=== PATIENT | male | born 1935 | race Caucasian/White ===

== ENCOUNTER 2017-05-04 10:44 | Inpatient (IN) | payer MEDICARE ==
[2017-05-04] MEDS ORDERED: methylPREDNISolone SODIUM SUC 125 MG/2 ML VIAL IV ONE (11:28)
[2017-05-04] MEDS ORDERED: ASPIRIN (CHEWABLE) 81 MG TAB PO ONE (11:28)
[2017-05-04] MEDS ORDERED: IPRATROPIUM/ALBUTEROL 3 ML VIAL NEB ONE (11:28)
[2017-05-04] MEDS ORDERED: NITROGLYCERIN/D5W IV 50,000 MCG in PREMIX BOTTLE 1 BOTTLE IVS SCH (11:30)
--- NOTE | 2017-05-04 11:36 | ED.PDOC ---
History of Present Illness - General Chief Complaint: Respiratory Problem Stated Complaint: low oxygen sats,elevated BP Time Seen by Provider: 05/04/17 11:26 Source: patient, family Exam Limitations: no limitations - History of Present Illness Initial Comments: Patient presents with dyspnea since yesterday. He says he got much worse 4 hours ago. He is on 2 L by [place] constantly at home for COPD and says that his saturations were 61 this morning. They normally are "in the 80s". He had a CABG and bovine aortic valve replacement 8 years ago but denies AMI. He does say that he has CHF. No chest pain today. No other complaints. Timing/Duration: 4-6 hours Severity: moderate Improving Factors: rest Worsening Factors: movement Associated Symptoms: denies symptoms Allergies/Adverse Reactions: Allergies Statins Allergy (Verified 05/04/17 11:10) Thimerosal [From Merthiolate Tincture] Allergy (Verified 05/04/17 11:10) Home Medications: Ambulatory Orders Acetaminophen W/ Codeine [Tylenol W/ CODEINE #3] 1 ea PO Q8H PRN 05/04/17 Albuterol Sulfate [Proair Hfa] 108 mcg IN PRN 05/04/17 Amlodipine Besylate 10 mg PO DAILY 05/04/17 Enzalutamide [Xtandi] 160 mg PO DAILY 05/04/17 Fluticasone Furoate-Vilanterol [Breo Ellipta] 1 inh IN DAILY 05/04/17 Fluticasone Propionate (Nasal) [Allergy Nasal [place] 24 Ho] 50 mcg NA PRN Lisinopril 5 mg PO DAILY 05/04/17 Ondansetron HCl [Zofran] 4 mg PO Q8H PRN 05/04/17 Tamsulosin [Flomax] 0.4 mg PO QD 05/04/17 Tiotropium Everett Monohydrate [Spiriva Handihaler] 2 puff IN DAILY 05/04/17 Review of Systems - Review of Systems Constitutional: States: no symptoms reported EENTM: States: no symptoms reported Respiratory: States: see HPI Cardiology: States: no symptoms reported Gastrointestinal/Abdominal: States: no symptoms reported Genitourinary: States: no symptoms reported Musculoskeletal: States: no symptoms reported Skin: States: no symptoms reported Neurological: States: no symptoms reported Endocrine: States: no symptoms reported Past Medical History (General) - Patient Medical History Hx Stroke: No Hx of COPD: Yes Hx Congestive Heart Failure: Yes Hx Hypertension: Yes Hx Diabetes: No Hx Cancer: Yes - 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 no wheezing. Cardiovascular/Chest: normal peripheral pulses, regular rate, rhythm, no edema Gastrointestinal/Abdominal: normal bowel sounds, non tender, soft Back Exam: no CVA tenderness Extremity: pedal edema - 3+ pitting edema Neurologic: no motor/sensory deficits, alert Skin Exam: normal color Lymphatic: no adenopathy Progress - Progress Progress: 05/04/17 14:10 Laboratory Tests 05/04/17 05/04/17 05/04/17 11:40 11:40 11:40 WBC 7.8 RBC 2.93 L Hgb 9.1 L Hct 27.3 L MCV 93.0 MCH 31.0 MCHC 33.2 RDW 12.9 Plt Count 259 MPV 7.7 Absolute Neuts (auto) 6.60 Absolute Lymphs (auto) 0.60 L Absolute Monos (auto) 0.50 Absolute Eos (auto) 0.00 Absolute Basos (auto) 0.00 Neutrophils % 85.5 H Lymphocytes % 7.5 L Monocytes % 5.9 Eosinophils % 0.6 L Basophils % 0.5 PT 11.9 INR 1.050 PTT (SP) 27.9 pCO2 pO2 HCO3 ABG pH ABG O2 Saturation ABG Base Excess ABG Deoxyhemoglobin Oxyhemoglobin % Carboxyhemoglobin % Methemoglobin % Sat Calc Total Hemoglobin Sodium 142 Potassium 5.3 H Chloride 107 Carbon Dioxide 25 Anion Gap 15.3 BUN 69 H Creatinine 3.86 H BUN/Creatinine Ratio 17.9 Random Glucose 137 H Serum Osmolality 305.4 H Calcium 9.4 Total Bilirubin 0.7 AST 22 ALT 17 Alkaline Phosphatase 85 Creatine Kinase CK-MB (CK-2) CK-MB (CK-2) % Troponin I B-Natriuretic Peptide Serum Total Protein 7.1 Albumin 3.5 Globulin 3.6 H Albumin/Globulin Ratio 1.0 L 05/04/17 05/04/17 05/04/17 11:40 11:40 12:10 WBC RBC Hgb Hct MCV MCH MCHC RDW Plt Count MPV Absolute Neuts (auto) Absolute Lymphs (auto) Absolute Monos (auto) Absolute Eos (auto) Absolute Basos (auto) Neutrophils % Lymphocytes % Monocytes % Eosinophils % Basophils % PT INR PTT (SP) Cancelled pCO2 38 pO2 90 HCO3 23.0 ABG pH 7.400 ABG O2 Saturation 99.6 H ABG Base Excess -1.0 ABG Deoxyhemoglobin 0.4 Oxyhemoglobin % 96.5 Carboxyhemoglobin % 0.9 Methemoglobin % Sat 2.2 H Calc Total Hemoglobin 8.2 L Sodium Potassium Chloride Carbon Dioxide Anion Gap BUN Creatinine BUN/Creatinine Ratio Random Glucose Serum Osmolality Calcium Total Bilirubin AST ALT Alkaline Phosphatase Creatine Kinase 48 CK-MB (CK-2) 1.5 CK-MB (CK-2) % Not Reportable Troponin I 0.06 H B-Natriuretic Peptide 1960.0 H* Serum Total Protein Albumin Globulin Albumin/Globulin Ratio BNP 1960. Patient given nitrobid ointment and lasix 40 mg IV x one. He was requiring 4-8 liters by NC tks > 90%. Troponin 0.06 which is probably due to enlargement of the heart. Admitted for CHF exacerbation. Departure - Departure Clinical Impression: Congestive heart failure Disposition: Admit Patient Condition: Good Departure Forms: ED Discharge - Pt. Copy, Patient Portal Self Enrollment Diet: other - as per hospitalist Activity: increase activity as tolerated Referrals: COLLIN MAC DO [Primary Care Provider] - 1-2 Weeks Home Medications: Ambulatory Orders Acetaminophen W/ Codeine [Tylenol W/ CODEINE #3] 1 ea PO Q8H PRN 05/04/17 Albuterol Sulfate [Proair Hfa] 108 mcg IN PRN 05/04/17 Amlodipine Besylate 10 mg PO DAILY 05/04/17 Enzalutamide [Xtandi] 160 mg PO DAILY 05/04/17 Fluticasone Furoate-Vilanterol [Breo Ellipta] 1 inh IN DAILY 05/04/17 Fluticasone Propionate (Nasal) [Allergy Nasal [place] 24 Ho] 50 mcg NA PRN Lisinopril 5 mg PO DAILY 05/04/17 Ondansetron HCl [Zofran] 4 mg PO Q8H PRN 05/04/17 Tamsulosin [Flomax] 0.4 mg PO QD 05/04/17 Tiotropium Everett Monohydrate [Spiriva Handihaler] 2 puff IN DAILY 05/04/17
[2017-05-04] MEDS ORDERED: FUROSEMIDE INJ 40 MG/4 ML VIAL IV ONE (12:24)
[2017-05-04] MEDS ORDERED: NITROGLYCERIN 2% 1 GM UD TOP ONE (12:25)
--- NOTE | 2017-05-04 12:35 | RAD ---
EXAM DESCRIPTION: Chest,1 View CLINICAL HISTORY: 82 years Male, dyspnea COMPARISON: None. IMPRESSION: The heart is enlarged with central pulmonary vascular congestion. Moderate atherosclerosis in the thoracic aorta. Median sternotomy wires and changes of prior cardiac surgery. Diffusely increased interstitial and airspace opacities throughout both lungs which are most pronounced in the lung bases. Moderate bilateral pleural effusions. The findings are most consistent with CHF with severe pulmonary edema. Multifocal pneumonia may have a similar appearance. No pneumothorax. No acute osseous abnormality. Electronically signed by: Oscar Chacon MD 05/04/2017 12:34 PM COMMERCIAL LENDING VICE PRESIDENT
--- NOTE | 2017-05-04 14:50 | HP ---
SUPERVISING PHYSICIAN: Tapan Cheney M.D. CHIEF COMPLAINT: Dyspnea and weakness. HISTORY OF PRESENT ILLNESS: This is an 82 year-old male patient who has recently moved in with his daughter who lives here in [place]. He originally is from [place]. He has a significant history of prostate cancer that he just recently went to see Dr. Young in [place]. He was actually in [facility] on 04/12/17 due to some urinary retention as well as followup on his prostate cancer. He was discharged home. He had been treated in the past by Dr. Arnold, urologist, until recently when he started going to Dr. Young. His primary care physician is Dr. Chadwick in [place]. Since he was discharged from [facility], he has attempted to do some rehab at [facility], but according to the patient there was some conflicts that were unresolvable, so he came to live with his daughter. In the last 2 days, he has become severely dyspneic. He is oxygen dependent at all times. At one point, he thought his oxygen was not working, although they checked it this morning and the medical service said that his oxygen machine checked out to be okay. He said his oxygen saturations dropped into the 60s and it is normally in the 80s. He called Dr. Chadwcik and Dr. Chadwick told him to go to the nearest E. . In the Emergency Room, his WBCs were 7.8 with hemoglobin 9.1 and hematocrit 27.3. ABG was basically within normal limits. Sodium was 142 with potassium 5.3, chloride 107, carbon dioxide 25, BUN 69, creatinine 3.86. He did say while he was in the hospital in [place] his creatinine went up as high as 7.7 and his baseline is around 4.7. Glucose was 137 and BNP was 1960. Chest x-ray showed and enlarged heart with central pulmonary vascular congestion with moderate bilateral pleural effusions that are consistent with congestive heart failure and severe pulmonary edema. Multifocal pneumonia may have a similar appearance which is also a consideration. In the Emergency Room, he was given some Lasix, some Solu-Medrol as well as multiple breathing treatments. Nitro paste was also applied. He did have a small amount of output. I was called for admission for acute exacerbation of congestive heart failure. PAST MEDICAL HISTORY: 1. Chronic obstructive pulmonary disease chronically on oxygen. 2. Congestive heart failure of unknown etiology and no current echocardiogram for review. Dr. Taylor is his financial manager. He has had a CABG in the past with a valve replacement. 3. Chronic renal failure with a baseline creatinine of 4.7. 4. Hypertension. 5. Hyperlipidemia. 6. Prostat cancer. PAST SURGICAL HISTORY: 1. Triple bypass with bovine valve replacement approximately 8 years ago. 2. Bilateral cataract surgery. 3. Bladder repair many years ago. 4. Tonsillectomy. OUTPATIENT MEDICATIONS: Per the EMR and awaiting verification. ALLERGIES: STATINS. SOCIAL HISTORY: He has a past history of smoking, quit about 8 years ago. He lives with his daughter here in [facility]. He drinks alcoholic beverages on a social basis. Denies any illicit drug use. REVIEW OF SYSTEMS: GENERAL: Positive for fatigue. Negative for fever or weight changes. HEENT: Negative for ear pain, vision changes, sore throat or sinus symptoms. RESPIRATORY: Positive for shortness of breath and a mild cough. Negative for wheezing. CARDIOVASCULAR: Negative for chest pain, palpitations or tachycardia. GASTROINTESTINAL: Positive for some mild nausea but negative for vomiting, constipation or diarrhea. GENITOURINARY: Negative for hematuria or dysuria. He does say he has problems urinating frequently most likely due to prostate problems. EXTREMITIES: Positive for edema to the bilateral lower extremities. NEUROLOGIC: Negative for dizziness, headaches or seizures. PHYSICAL EXAMINATION: VITAL SIGNS: He is afebrile, heart rate 88, blood pressure 136/68, respiratory rate has been as high as 25, it is now 22. O2 saturation was as low as 84%, it is now 88% on 2 liters nasal cannula. GENERAL: This is an 82 year-old male patient who is lying in his hospital bed. He is in no acute distress. HEENT: Normocephalic and atraumatic. Pupils are equal and reactive. Oropharynx is clear. NECK: Supple without mass. There is no discernible jugular venous distention. RESPIRATORY: Scattered crackles throughout with diminished breath sounds. There is no wheezing noted. CHEST: There is equal rise and fall of the chest with inspiration and expiration. He is slightly tachypneic. CARDIOVASCULAR: Regular rate and rhythm. GASTROINTESTINAL: Abdomen is soft, nondistended, non-tender. Bowel sounds are positive. EXTREMITIES: +2 pitting edema to bilateral lower extremities. There is no cyanosis. NEUROLOGIC: He is awake, alert and oriented times three. Cranial nerves II- XII are intact. LABORATORY: Labs and films are as per the History of Present Illness. ASSESSMENT: 1. Acute exacerbation of congestive heart failure of unknown etiology and no echocardiogram available for review. He is O2 dependent at home with severe dyspnea and an elevated BNP on admission of approximately 1999. 2. Chronic obstructive pulmonary disease. 3. Prostate cancer. 4. Coronary artery disease with a history of coronary artery bypass graft and valve replacement. 5. Hyperlipidemia. 6. Hypertension. 7. Hyperkalemia. 8. Chronic renal failure with a baseline creatinine of 4.7. PLAN: We will admit the patient to the hospital. I have initiated the CHF guidelines. His home medications have been started. It is to be noted that he is on an Willem inhibitor but he does not have a beta katt. He is on a calcium channel katt. I have held his p.o. Lasix as he is on IV Lasix. Will repeat his lab and chest x-ray in the morning. He would like to have home health on discharge with physical therapy. He will inform us of what service he would like to use. It would be helpful to get an echocardiogram from Dr. Taylor's office if possible. Otherwise we will continue to monitor the patient closely and follow as needed. Dr. Cheney is the collaborating physician available for consultation. #[id number] [facility] HOSPITALJessie
[2017-05-04] MEDS ORDERED: NITROGLYCERIN 0.4 MG 25 EA TAB SL PRN (17:05)
[2017-05-04] MEDS ORDERED: ALBUTEROL SULFATE 2.5 MG/3 ML VIAL NEB PRN (17:05)
[2017-05-04] MEDS ORDERED: ACETAMINOPHEN 325 MG TAB PO PRN (17:05)
[2017-05-04] MEDS ORDERED: TAMSULOSIN 0.4 MG CAP PO SCH (17:30)
[2017-05-04] MEDS ORDERED: IV SET AND CAP CHANGE INJ INJ SCH (17:30)
[2017-05-04] MEDS: ALBUTEROL SULFATE 2.5 MG/3 ML VIAL NEB SCH (20:05)
[2017-05-04] MEDS: SODIUM CHLORIDE 0.9% (FLUSH) 10 ML SYG IV SCH (20:31)
[2017-05-05] MEDS ORDERED: diphenhydrAMINE HCL 50 MG/ML VIAL IV ONE (06:49)
[2017-05-05] MEDS ORDERED: FUROSEMIDE INJ 40 MG/4 ML VIAL IV ONE (06:49)
[2017-05-05] MEDS ORDERED: ACETAMINOPHEN 325 MG TAB PO ONE (06:49)
[2017-05-05] MEDS ORDERED: SODIUM CHLORIDE 0.9% 500ML 500 ML IVS SCH (07:00)
--- NOTE | 2017-05-05 07:50 | RAD ---
Clinical History : CHF , MAIN Exam : Portable AP view of the chest 05/05/2017 7:00 AM COST ESTIMATING ENGINEER Comparisons : Portable AP view of the chest May 04, 2017 Findings : The patient is in lordotic position which accentuates the lung apices and partially obscures evaluation of the lung bases. There is moderate diffuse peribronchial thickening throughout the lungs bilaterally. There is a moderate right and small left pleural effusion with bilateral lower lobe airspace disease. The heart is enlarged. The mediastinal contours are normal in appearance. The patient is status post sternotomy and CABG. The thoracic spine is age appropriate. The shoulders are unremarkable. Limited evaluation of the upper abdomen demonstrates no gross abnormalities. Impression: Pulmonary edema with increasing bilateral pleural effusions and lower lobe airspace disease. Electronically signed by: Clau Thornton MD 05/05/2017 7:49 AM COST ESTIMATING ENGINEER
[2017-05-05] MEDS ORDERED: ACETAMINOPHEN W/COD #3 TAB 1 EA TAB PO PRN (07:51)
[2017-05-05] MEDS: ALBUTEROL SULFATE 2.5 MG/3 ML VIAL NEB SCH ×5 (08:24→19:59)
[2017-05-05] MEDS: NON-FORMULARY MEDICATION 1 EA MIS (Fluticasone Furoate-Vilanterol [Breo Ellipta 100-25 Mcg IN SCH ×2 (08:27→11:45)
[2017-05-05] MEDS: NITROGLYCERIN 2% 1 GM UD TOP SCH ×2 (08:54→15:35)
[2017-05-05] MEDS: LISINOPRIL 5 MG TAB PO SCH (08:55)
[2017-05-05] MEDS: amLODIPine BESYLATE 5 MG TAB PO SCH (08:55)
[2017-05-05] MEDS: TAMSULOSIN 0.4 MG CAP PO SCH (08:56)
[2017-05-05] MEDS: FUROSEMIDE INJ 40 MG/4 ML VIAL IV SCH ×2 (08:56→15:47)
[2017-05-05] MEDS: SODIUM CHLORIDE 0.9% (FLUSH) 10 ML SYG IV SCH ×2 (08:57→21:14)
[2017-05-05] MEDS: TIOTROPIUM INH SCH (11:45)
[2017-05-05] MEDS: ENZALUTAMIDE 160 MG PO SCH (11:54)
[2017-05-05] MEDS: SODIUM CHLORIDE 0.9% (FLUSH) 10 ML SYG IV PRN ×2 (15:35→21:28)
[2017-05-05] MEDS ORDERED: SOD POLYSTYRENE SULFONATE 15 GM/60 ML BTTL PO ONE (19:30)
[2017-05-05] MEDS: POLYETHYLENE GLYCOL 3350 17 GM PCKT PO SCH (20:08)
--- NOTE | 2017-05-05 20:15 | PN ---
DATE: 05/05/17 SUBJECTIVE: The patient is sitting up eating his supper. He is alert and communicative. He is somewhat short of breath. Significant pulmonary edema was evident on chest x-ray. He is now in the process of receiving 2 units of packed red blood cells with some Lasix IV between the units of blood being given. He has had a previous history of being scheduled for this Sunday by Dr. Young, oncology/ethnoarchaeologist for iron infusion as well as Lupron medication dosing. This will no doubt need to be rescheduled. He is also scheduled to see his urologist later next week and that also needs to be clarified so that he will not have to miss that appointment. The patient has had significant problems with prostate cancer and the possibility of it having spread to his bones has been discussed with him. He is living with his daughter in [place] but wants to get feeling strong enough so that he will be able to return home to [place], [place] for continued care. In the meantime, he may benefit from some home health services while at his daughter's home after discharge. OBJECTIVE: Afebrile, pulse 100, blood pressure 114/53, pulse oximetry is very low at 82 and 83 on 2 liters even though his blood gas saturation was quite normal because possibly of reduced hemoglobin and a degree of cyanosis possibly relating to his previous heart disease. He has had an aortic valve replaced and he has a very large heart with elevated BNP and will require ongoing specialized followup with Dr. Taylor, forklift wheel loader. The patient is awake and alert. LUNGS: Have some rhonchi with some initial rales clearing as he continues with deep inspirations. HEART: Tones are somewhat distant and do have evidence of a systolic murmur and possibly a prosthetic valvular closing sound. ABDOMEN: Soft though slightly prominent. EXTREMITIES: Fairly well formed with some edema of the lower extremities. Coloration is somewhat ashen in color and the nurses have noted the diminished pulse oximetry on his finger, even though blood gas shows the saturation to be normal to high at a given oxygen administration. He uses oxygen at home. LABORATORY: Hemoglobin has dropped from 9.1 to 8 this morning and an order was given to instill 2 units of packed red blood cells slowly with Lasix in between to help prevent any evidence of significant overloading. No cultures obtained. RADIOLOGY: Chest x-ray is obtained this morning and shows pulmonary edema with increasing pleural effusions and lower lobe airspace process. His weight today is 2 pounds approximately solutions sales consultant than yesterday paralleling some of the diuresis that he has had. ASSESSMENT: 1. Chronic congestive heart failure with an acute exacerbation of unknown etiology with no echocardiogram available for review being followed by Dr. Taylor, forklift wheel loader in [place]. Elevated BNP is noted with history of congenital or acquired aortic heart valve disease requiring surgery recently. 2. Chronic obstructive pulmonary disease with mild exacerbation. 3. Chronic prostate cancer being followed by Urology in [place] with possible metastatic spread and some obstructive components having been on chemotherapy hormone therapy for a few years, now having been changed to Lupron recently. 4. History of coronary artery disease with a history of coronary artery bypass grafting and aortic valve replacement in the past. 5. Hyperlipidemia. 6. Hypertension. 7. Hyperkalemia. 8. Chronic renal failure with a baseline creatinine of 4.7. 9. Chronic anemia with an acute exacerbation receiving 2 units of packed red blood cells today and receiving iron infusions, etc., from H[facility]ology Clinic in [place] when scheduled. PLAN: Complete the infusion and continue gentle diuresis with p.o. fluid restrictions. Slowly increase activity level. Reevaluate closely. Try to get in touch with Dr. Taylor, Dr. Young and the urologist on Sunday to allow them to be informed of the patient's current condition and to provide input for his ongoing care. #[id number] [facility]
[2017-05-06] MEDS: NON-FORMULARY MEDICATION 1 EA MIS (Fluticasone Furoate-Vilanterol [Breo Ellipta 100-25 Mcg IN SCH (08:14)
[2017-05-06] MEDS: ALBUTEROL SULFATE 2.5 MG/3 ML VIAL NEB SCH ×4 (08:15→20:40)
[2017-05-06] MEDS: TIOTROPIUM INH SCH (08:15)
[2017-05-06] MEDS ORDERED: ONDANSETRON 4 MG TAB ONE (08:57)
[2017-05-06] MEDS: SODIUM CHLORIDE 0.9% (FLUSH) 10 ML SYG IV SCH ×2 (09:19→21:13)
[2017-05-06] MEDS: FUROSEMIDE INJ 40 MG/4 ML VIAL IV SCH ×2 (09:19→20:16)
[2017-05-06] MEDS: ONDANSETRON 4 MG TAB PO PRN ×2 (09:21→17:40)
[2017-05-06] MEDS ORDERED: MAGNESIUM HYDROXIDE 30 ML UD PO ONE (11:34)
[2017-05-06] MEDS: ENZALUTAMIDE 160 MG PO SCH (11:56)
[2017-05-06] MEDS: amLODIPine BESYLATE 5 MG TAB PO SCH (11:57)
[2017-05-06] MEDS: LISINOPRIL 5 MG TAB PO SCH (11:57)
[2017-05-06] MEDS: POLYETHYLENE GLYCOL 3350 17 GM PCKT PO SCH (11:58)
[2017-05-06] MEDS: TAMSULOSIN 0.4 MG CAP PO SCH (11:58)
--- NOTE | 2017-05-06 14:10 | PN ---
DATE: 05/06/17 SUBJECTIVE: The patient is sitting up in his bed. He is able to talk but is still having some difficulty breathing. His 2 sons are present and the entire condition is discussed at length as we make plans for future care. He tolerated the RBC transfusion yesterday quite well with an improved hemoglobin today and improved coloration evident. Still somewhat nauseated today. The patient does have several underlying factors of significance requiring specialized ongoing care and assistance. OBJECTIVE: Afebrile, pulse 89, blood pressure 155/70, pulse oximetry 90% on nasal cannula. Weight is slightly elevated but with increased fluids after the blood products were given yesterday and he seems to be constipated without significant bowel movements now for several days or weeks. The patient states that he feels "full" in his abdomen which is somewhat distended. No point tenderness noted or organomegaly evident. HEART: Tones do reveal somewhat distant heart tones. LUNGS: Have some diminished breath sounds with some rhonchi bilaterally. Improvement in some of the rales noted laterally. ABDOMEN : Distended with no rebound tenderness. Bowel tones are somewhat diminished. The patient is going to try to increase activity level beginning today with close observation and prevention of falling. LABORATORY STUDIES: Hemoglobin is up from 8 to 10.6, white count 9,600 with a normocytic/normochromic presentation. Chemistries show potassium is down from 5.6 to 4.9, BUN is 71 down from 73 and creatinine is 3.97 down from 4.15. Glucose 120. Recently with elevated beta natriuretic peptide of 1,960 to be rechecked in the morning. RADIOLOGY: Chest x-ray is to be checked again tomorrow with it showing yesterday some pulmonary edema with pleural effusions and followup necessary. Continue diuresis. ASSESSMENT: 1. Chronic congestive heart failure with an acute exacerbation of unknown etiology with no specific echocardiogram results available at this time but being followed by Dr. Taylor, city plant supervisor in [place]. He presents with elevated BNP and a history of aortic valve disease with significant muscle hypertrophy. 2. Chronic obstructive pulmonary disease with exacerbation. 3. Chronic prostate cancer being followed by Urology in [place] with metastatic spread and obstructive components with noted bilateral hydroureters and hydronephrosis possibly suggesting a bladder outlet obstruction in the region of the prostate currently on chemotherapy with new chemotherapy to be initiated when possible. 4. History of coronary artery disease with history of coronary artery bypass grafting as well as aortic valve replacement in the past. 5. Hyperlipidemia. 6. Hypertension. 7. Hyperkalemia showing improvement after Kayexalate. 8. Chronic renal failure with a baseline creatinine of 4.[address] Ann, faculty research assistant. 9. Chronic anemia with acute exacerbation receiving 2 units of packed red blood cells and receiving iron infusions, etc., at the hematology clinic in [place] when scheduled. Presents with a normocytic/normochromic pattern, possibly if chronic disease. PLAN: The patient's activity level will be increased now that he has received his blood transfusions. Physical Therapy will evaluate him for rehab potential. Possibility of Swing Bed to assist with strengthening and reduction of fall risk. The patient currently is being followed by Dr. Chadwick out of [place], [place] and sees Dr. Young, oncologist in [place], and Dr. Ann in [place] and Dr. Taylor, city plant supervisor. He is to see a new urologist soon in [place]. It is a significant hardship on the family to have him go back and forth to [place] and they are requesting and we are hoping to be able to expedite a program of close followup in [place] to allow with his ongoing care, especially since the patient is significantly disabled and requires specialized care. Suggest followup with primary care physician, Dr. Hanson or Dr. Cheney in the near future to see if they will be able to help with orchestrating the other specialists in the patient's ongoing care. Will try to make a phone call on Sunday, tomorrow, to see if Dr. Jose M Torres, urologist , can see the patient at his next visit on 05/09/17 in the morning, phone number [phone]. To call Dr. Carver at [phone] to see if the patient would be able to get an appointment to see her instead of Dr. Young, her colleague at her next visit in the afternoon of 05/14/17. The possibility of transferring the new chemotherapy pills with Dr. Carver from Dr. Young' s office in [place] would be very helpful so that it can be commenced to be treated along with the Lupron shots. Dr. Ann could see the patient because of renal failure next Sunday in the afternoon, 05/09/17, phone number [phone] to see if an appointment can be made. The patient also sees Dr. Taylor, city plant supervisor, [place] at [phone] and recommendations can be made regarding his ongoing treatment of significant congestive heart failure , but also to see if he with either need to come to see Dr. Taylor in [place] or would he be able to have his care continued with Dr. Avina or Dr. Lino who actually come to the [facility]. May also call on Sunday to [facility] at [phone] to see the patient and the family to arrange for home health assistance when he returns home where he lives with his daughter. Physical Therapy is to see the patient in the morning to see if he has rehab potential, would he benefit by Swing Bed rehabilitation or continued outpatient rehab. The patient is at fall risk. Reevaluate in the morning with lab and x-ray as well as an ultrasound to evaluate for the presence of significant bilateral hydroureter and hydronephrosis which was noted in March in [place] over a month ago to see if there is any significant change. This study to be performed in the morning. Close followup is necessary. #[id number] [facility]
[2017-05-06] MEDS ORDERED: BISACODYL SUPPOSITORY 10 MG PR PRN (15:00)
[2017-05-06] MEDS: NITROGLYCERIN 2% 1 GM UD TOP SCH (20:23)
--- NOTE | 2017-05-07 07:48 | RAD ---
EXAM DESCRIPTION: Chest,1 View CLINICAL HISTORY: chf COMPARISON: May 05, 2017 IMPRESSION: Single AP portable upright view of the chest shows enlargement of the cardiac silhouette. Pulmonary vascularity is mildly prominent, but slightly improved from previous exam system with mild congestive heart failure. Small bilateral pleural effusions are seen slightly improved on the right probable bibasilar atelectasis or infiltrates again seen. Postsurgical changes from CABG are again noted. Electronically signed by: Michael Dalton MD 05/07/2017 7:48 AM CDT
[2017-05-07] MEDS: TIOTROPIUM INH SCH (08:54)
[2017-05-07] MEDS: NON-FORMULARY MEDICATION 1 EA MIS (Fluticasone Furoate-Vilanterol [Breo Ellipta 100-25 Mcg IN SCH (08:54)
[2017-05-07] MEDS: ALBUTEROL SULFATE 2.5 MG/3 ML VIAL NEB SCH ×3 (08:54→19:53)
[2017-05-07] MEDS: LISINOPRIL 5 MG TAB PO SCH (09:27)
[2017-05-07] MEDS: TAMSULOSIN 0.4 MG CAP PO SCH (09:27)
[2017-05-07] MEDS: amLODIPine BESYLATE 5 MG TAB PO SCH (09:27)
[2017-05-07] MEDS: FUROSEMIDE INJ 40 MG/4 ML VIAL IV SCH (09:27)
[2017-05-07] MEDS: POLYETHYLENE GLYCOL 3350 17 GM PCKT PO SCH (09:27)
[2017-05-07] MEDS: SODIUM CHLORIDE 0.9% (FLUSH) 10 ML SYG IV SCH (09:28)
[2017-05-07] MEDS: ENZALUTAMIDE 160 MG PO SCH (09:29)
--- NOTE | 2017-05-07 12:24 | US ---
EXAM DESCRIPTION: Renal: Ultrasound. CLINICAL HISTORY: obstructive uropathy, Check ureters and bladder. COMPARISON: None. TECHNIQUE: Transcutaneous scanning: Two-dimensional and Doppler modes. FINDINGS: Right kidney measures 11.1 x 5.9 x 5.3 cm; mid-renal cortical thickness 1.3 mm. . Echogenicity increased and heterogeneous compared to the liver. Mild to moderate hydronephrosis No calcifications. Lobulated contour of the kidney with no perinephric fluid. Normal vascularity. Proximal ureter visualized and mildly dilated. Left kidney measures 11.2 x 5.4 x 5.9 cm; mid-renal cortical thickness 11 mm. Increased heterogeneous echogenicity compared to the liver. [id number] hydronephrosis. No calcifications. 2.4 x 1.9 x 1.2 cm anechoic cyst, mid aspect. Lobulated contour of the kidney with no perinephric fluid. Normal vascularity.. Proximal ureter visualized and mildly dilated. Urinary bladder was visualized but decompressed with fluid inflated balloon on the catheter. Hypoechoic lobulated prostate gland impressing on the bladder base measuring 7.2 x 4.5 x 4.7 cm. Ureteral jet in the bladder not seen. Abdominal aorta diameter not measured. IMPRESSION: 1. Right renal moderate hydronephrosis with cortical thinning and increased echogenicity relative to the liver which could indicate medical renal disease but cannot exclude obstructive uropathy. Moderate hydronephrosis and mild to moderate dilation of the proximal right ureter. 2. Left renal moderate hydronephrosis with cortical thinning and increased echogenicity, which could indicate medical renal disease, but cannot exclude obstructive uropathy. Moderate hydronephrosis and mild to moderate dilation of the proximal left ureter. 2.4 cm anechoic cyst. 3. Enlarged prostate gland impressing on the base of the urinary bladder may be causing bladder outlet obstruction. Electronically signed by: Raji Moya MD 05/07/2017 12:23 PM CDT
[2017-05-07 16:50] VITALS: BP 137/66; TEMP 96.9
[2017-05-07 19:56] VITALS: O2SAT 95
--- NOTE | 2017-05-16 20:53 | DS ---
SUPERVISING PHYSICIAN: Tapan Cheney M.D. DISCHARGE DIAGNOSIS: 1. Chronic congestive heart failure with an acute exacerbation of unknown etiology with no specific echocardiogram results available for review requiring close followup by Dr. Taylor, health specialist in [place]. He initially presented with a BNP that was elevated as well as she has a history of aortic valve disease with significant muscle hypertrophy. 2. Chronic obstructive pulmonary disease with exacerbation. 3. Chronic prostate cancer being followed by Urology in [place] with metastatic spread and obstructive components with noted bilateral hydroureters and hydronephrosis possibly suggesting a bladder outlet obstruction in the region of the prostate and currently on chemotherapy with new chemotherapy to be initiated as soon as possible. 4. History of coronary artery disease with history of coronary artery bypass grafting as well as aortic valve replacement in the past. 5. Hyperlipidemia. 6. Hypertension. 7. Hyperkalemia, improved with Kayexalate. 8. Chronic renal failure with a baseline creatinine of 4.[address] 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 9. Chronic anemia with acute exacerbation having received 2 units of packed red blood cells and iron infusions at the hematology clinic in [place]. He presented with a normocytic/normochromic pattern, possibly of chronic disease. REASON FOR HOSPITALIZATION: Mr. Mcqueen is an 82 year-old male patient who had been recently moved in with his daughter who lives in [place]. He originally is from [place], [place]. He has a significant history of prostate cancer that he just recently went to see Dr. Young in [place]. He was actually in [facility] on 04/12/17 due to some urinary retention as well as followup on his prostate cancer. He was discharged home. He had been treated in the past by Dr. Arnold, urologist, until recently when he started going to Dr. Young. His primary care physician is Dr. Chadwcik in [place]. Since he was discharged from [facility], he had attempted to do some rehab at [facility], but according to the patient there was some conflicts that were unresolvable, so he came to live with his daughter. In the last 2 days, he has become severely dyspneic. He is oxygen dependent at all times. At one point, he thought his oxygen was not working, although they checked it this morning and the medical service said that his oxygen machine checked out to be okay. He said his oxygen saturations dropped into the 60s which it is normally in the 80s. He called Dr. Chadwick and Dr. Chadwick told him to go to the nearest E. R. In the Emergency Room, his WBCs were found to be 7.8 with hemoglobin 9.1 and hematocrit 27.3. ABG was basically within normal limits. He did say while he was in the hospital in [place] his creatinine went up as high as 7.7 and his baseline is around 4.7. On initial examination, laboratory studies showed potassium was 5.3 with creatinine 3.86. Chest x-ray showed an enlarged heart with central pulmonary vascular congestion with moderate bilateral pleural effusions that are consistent with congestive heart failure and severe pulmonary edema. Multifocal pneumonia may have a similar appearance which is also a consideration. In the Emergency Room, he was given some Lasix, Solu- Medrol as well as multiple breathing treatments. Nitro paste was applied and he did have a small amount of output. He was then admitted to the Medical/ Surgical floor for acute exacerbation of congestive heart failure. LABORATORY STUDIES: CBC on admission showed white count 7,800, at discharge it was 7,600. Hemoglobin at discharge was 11, hematocrit 32.8, platelet count 227, 000. Initially did show a left shift. This resolved prior to discharge. Coagulation studies showed that he had a normal PT and PTT. Blood gas analysis showed to be within normal limits with him satting 99.6%. Chemistries showed initially potassium 5.3 with BUN 69, creatinine 3.86, osmolality 305, magnesium 1.6, calcium 9.4. Liver functions are within normal limits. Elevated troponin of 0.06 but BNP of 1960. After Kayexalate and treatment and prior to discharge, his electrolytes had normalized. Potassium was 4.7, BUN was 65 and creatinine 4.02 with glucose 109, calcium 9.6, magnesium 1.6. Liver functions remain within normal limits. He had 1 stool occult blood that was negative. MICROBIOLOGY: No specimens are submitted. RADIOLOGY: Initially in the Emergency Department he had a chest x-ray and per radiology interpretation there was note of enlarged central pulmonary vascular congestion with diffuse increased interstitial and airspace opacity throughout both lungs with most pronounced in the lung bases. There is note of moderate bilateral pleural effusions which findings were most consistent with congestive heart failure with severe pulmonary edema with multifocal pneumonia having the same appearance. There was no pneumothorax. Repeat chest x-rays were completed and the last chest x-ray on 05/07/17 after initiation of treatment prior to discharge showed per radiology interpretation pulmonary vascular congestion mildly prominent but slightly improved from previous exams with mild congestive heart failure with some small bilateral pleural effusions slightly improved on the right, probable basilar atelectasis or infiltrates again seen. He had a renal ultrasound prior to discharge and per radiology interpretation there was note of right renal moderate hydronephrosis with cortical thinning and increase in echogenic relative to the liver which could indicate medical disease, but could not exclude obstructive uropathy and moderate hydronephrosis and mild to moderate dilation of the proximal ureter. The left was noted with moderate hydronephrosis with cortical thinning and increased echogenicity again as noted above. Concerns for obstructive uropathy. There was note also of enlarge prostate gland impressing on the base of the urinary bladder which may be causing bladder outlet obstruction. EKG in the Emergency Department prior to admission showed normal sinus rhythm with no concerning changes. HOSPITAL COURSE: Mr. Mcqueen was admitted as noted on 05/04/17 above, initiated on treatment with Lasix and Kayexalate. He did show good clinical response to treatment as well as he was given a single dose of Solu-Medrol. No antibiotics were started. There was no significant signs of any major infection or pneumonia. The patient was feeling much better and clinically improved on the morning of discharge well enough to be followed in the outpatient setting with his primary care physician as well as his multiple specialist doctors. He did have the indwelling Diaz catheter replaced on admission which did remain in place prior to discharge with no signs of infection. PLAN: Mr. Mcqueen was discharged on 05/07/17 with instructions to have close clinical followup with Dr. Cheney which was arranged as a new appointment on Sunday of discharge. He was to coordinate care with specialists through Dr. Cheney's office. He was told to restrict his fluids to less than 1600 mL in a 24 hour period and to return to the hospital should he have any concerning symptoms. His diet was to be usual diet. Activity is increase activity as tolerated. Discharge medications included: 1. MiraLAX 17 grams daily. All other medications as prior to admission were continued as previous to discharge and admission. Condition on discharge was stable and improved. #[id number] [facility]
== END 2017-05-07 17:15 | disposition home or self-care (01) | DRG 292 ==
LOC: ER 10:44 → MS 14:45
PROVIDERS: ADMIT Nurse Practitioner Acute Care; ATTEND Nurse Practitioner Family
PROC: 30233N1 Transfusion of Nonautologous Red Blood Cells into Peripheral Vein, Percutaneous Approach (ICD-10-PCS; principal; 2017-05-05)
DX: I13.0 Hypertensive heart and chronic kidney disease with heart failure and stage 1 through stage 4 chronic kidney disease, or unspecified chronic kidney disease (principal); J44.1 Chronic obstructive pulmonary disease with (acute) exacerbation; N13.39 Other hydronephrosis; C79.51 Secondary malignant neoplasm of bone; I50.9 Heart failure, unspecified; E87.5 Hyperkalemia; R11.0 Nausea; C61 Malignant neoplasm of prostate; D64.9 Anemia, unspecified; N32.0 Bladder-neck obstruction; I25.10 Atherosclerotic heart disease of native coronary artery without angina pectoris; N18.9 Chronic kidney disease, unspecified; E78.5 Hyperlipidemia, unspecified; Z99.81 Dependence on supplemental oxygen; Z95.1 Presence of aortocoronary bypass graft; Z85.46 Personal history of malignant neoplasm of prostate; Z88.8 Allergy status to other drugs, medicaments and biological substances; Z87.891 Personal history of nicotine dependence; Z95.3 Presence of xenogenic heart valve; Z79.899 Other long term (current) drug therapy

== ENCOUNTER → 2017-07-20 | Outpatient (CLI) | payer MEDICARE | LOC: GT 06:09 | PROVIDERS: ATTEND Family Medicine | DX: I10 Essential (primary) hypertension (principal); E78.5 Hyperlipidemia, unspecified; C67.9 Malignant neoplasm of bladder, unspecified; D64.9 Anemia, unspecified; C61 Malignant neoplasm of prostate ==